=== PATIENT | female | born 1960 | race Caucasian/White ===

== ENCOUNTER 2016-10-10 06:13 | Observation (INO) | payer BC ==
[~2016-10-10] VITALS: Ht 156.2 cm; Wt 83.4 kg
[~2016-10-10 06:13] MED LIST: ACET1CAP18 PO; ATOR1TAB18 PO; IBUP200C PO; LEVO75TA3 PO; NAPR220T95 PO
[2016-10-10] MEDS ORDERED: INSULIN HUMAN REGULAR 1,000 UNITS/10 ML VIAL SQ PRN (06:45)
[2016-10-10] MEDS ORDERED: METOPROLOL TARTRATE 25 MG TAB PO PRN (06:45)
[2016-10-10] MEDS ORDERED: SODIUM CHLORID 0.9% 500 ML IV SCH (06:45)
[2016-10-10] MEDS ORDERED: LACTATED RINGER'S 1000 ML IV SCH (06:45)
[2016-10-10 06:53] VITALS: BP 149/96; PULSE 75; RESP 18; TEMP 98; O2SAT 96
[2016-10-10] MEDS ORDERED: GENTAMICIN SULFATE 80 MG/2 ML VIAL ONE (07:01)
[2016-10-10] MEDS ORDERED: THROMBIN (TOPICAL) 5,000 UNIT VIAL ONE (07:01)
[2016-10-10] MEDS ORDERED: MICROFIBRILLAR COLLAGEN HEMOSTAT 70 X 35 MM BANDAGE ONE (07:01)
[2016-10-10] MEDS ORDERED: GELFOAM SIZE 100 ONE (07:01)
[2016-10-10] MEDS ORDERED: ceFAZolin 2 GM PREMIX 50 ML ONE (07:01)
[2016-10-10] MEDS ORDERED: VANCOMYCIN HCL 1000 MG VIAL ONE (07:02)
[2016-10-10] MEDS ORDERED: ACETAMINOPHEN 1000 MG/100 ML VIAL IV ONE (08:08)
[2016-10-10] MEDS ORDERED: FAMOTIDINE 20 MG/2 ML VIAL ONE (08:09)
[2016-10-10] MEDS ORDERED: MIDAZOLAM HCL 2 MG/2 ML VIAL ONE (08:09)
[2016-10-10] MEDS ORDERED: ARTIFICIAL TEARS OPTH OINT 3.5 APPLIC/3.5 GM TUBO ONE (08:09)
[2016-10-10] MEDS ORDERED: fentaNYL CITRATE 250 MCG/5 ML AMP ONE ×2 (08:10→12:23)
[2016-10-10] MEDS ORDERED: ONDANSETRON HCL 4 MG/2 ML VIAL IV PUSH ONE (12:00)
[2016-10-10] MEDS ORDERED: LACTATED RINGER'S 1000 ML INJ 1,000 ML IV ONE (12:00)
[2016-10-10] MEDS ORDERED: PHENYLEPH/NS 1000 MCG/10 ML SYR IV ONE (12:00)
[2016-10-10] MEDS ORDERED: ePHEDrine/NS 25 MG/5 ML SYR IV ONE (12:00)
[2016-10-10] MEDS ORDERED: PROPOFOL 200 MG/20 ML AMP IV ONE (12:00)
--- NOTE | 2016-10-10 12:06 | RADRPT ---
EXAM DATE/TIME: 10/10/2016 09:17 [place] COMPARISON: No previous studies available for comparison. INDICATIONS : Post-op C3-C4-C5 anterior cervical fusion. MEDICAL HISTORY : None. SURGICAL HISTORY : None. ENCOUNTER: Initial ACUITY: 1 day PAIN SCORE: Non-responsive. LOCATION: neck FINDINGS: There is anterior cervical fusion with a plate anteriorly from C3-C5. The vertebral bodies are normal in alignment on the lateral view. CONCLUSION: 1. Postsurgical changes as above. Martínez Baker MD on October 10, 2016 at 12:05 Board Certified Radiologist. This report was verified electronically.
[2016-10-10] MEDS ORDERED: DO NOT ADM ANY ANTICOAGULANT DRUGS XX PRN (12:13)
[2016-10-10] MEDS ORDERED: ACETAMINOPHEN 325 MG TAB PO PRN ×2 (12:15)
[2016-10-10] MEDS ORDERED: SODIUM CHLORIDE 0.9% FLUSH 5 ML FLUSH IVF PRN (12:15)
[2016-10-10] MEDS ORDERED: ONDANSETRON HCL 4 MG/2 ML VIAL IV PRN (12:15)
[2016-10-10] MEDS ORDERED: ACETAMINOPHEN/HYDROcodone 325 MG/10 MG TAB PO PRN ×2 (12:15)
[2016-10-10] MEDS ORDERED: BISACODYL 10 MG SUPP PR PRN (12:15)
[2016-10-10] MEDS ORDERED: MORPHINE SULFATE 4 MG/ML INJ IV PUSH PRN (12:15)
[2016-10-10] MEDS ORDERED: MENTHOL LOZENGE SUCK-ON PRN (12:15)
--- NOTE | 2016-10-10 12:20 | PD.OP ---
Operative Report Date of Surgery: Oct 10, 2016 Preoperative Diagnosis: Cervical spondylolisthesis with stenosis Postoperative Diagnosis: Cervical spondylolisthesis with stenosis Procedure: C3-4, C4-5 anterior cervical discectomy, interbody arthodhesis using PEEK cage filled with autologous bone graft, Simplicity plate and screws. Anesthesia: general Surgeon: Aakash Elise Dietetic Technician Registered(s): Viola Bowden Operation and Findings: INDICATIONS FOR THE PROCEDURE Ms Lieberman is a 56 year-old female who presented with intractable neck pain and clinical evidence of C4 and C5 upper extremity radiculopathy. She was found to have subluxations with significant spondylosis with stenosis. She has failed maximum nonsurgical management including multiple modalities of conservative treatment as well as pain management interventions by an interventional pain specialist. A surgical decompression and arthrodhesis were indicated. The [id number] details of the procedure, indications, alternatives, risks and potential complications were fully discussed with the patient. The patient fully understood. All The questions were answered. No guarantees were given. The patient voiced requesting the procedure and provided informed consents. The patient was offered the alternative of delaying the procedure and continuing with nonsurgical management. DETAILS OF THE SURGICAL PROCEDURE After the induction of general anesthesia, endotracheal intubation was performed. A Avila catheter, bilateral LILY hose, and sequential compression devices were placed and kept throughout the procedure. Placement of electrodes for neurophysiological monitoring of the somatosensorial evoked potentials. motor evoked potentials, and EMG as well as laryngeal nerve monitoring was achieved. The patient was positioned supine on a Alirio table with the head over a gel doughnut. All pressure points were carefully padded with eggcrate mattress. The eyes were tapped shut after ointment was applied by the anesthesiologist to prevent corneal abrasion. A Sapna hugger was placed over the exposed lower body to maintain control of the core body temperature. The electrophysiological team placed the needles and electrodes in their proper location and baseline SSEP's and motor evoked potentials were registered prior and after positioning and endotracheal intubation. The anterior cervical region was prepped and draped in the usual sterile fashion. A localizing x-ray was performed with a C-arm. The surgical procedure was performed in several steps as follow: SURGICAL APPROACH A skin incision was made along the medial cervical crease with a #10 blade. The dissection was carried out through the platysma exposing the sternocleidomastoid muscle. The cervical spine was approached following the fascial layers of the neck just medial to the anterior border of the sternocleidomastoid and carotid sheath by a combination of sharp and dull dissection. The omohyoid muscle was identified and carefully dissected laterally and the deep cervical fascia was carefully opened. The longus colli muscles were retracted to each side of the midline. A marker was placed at the disc space C3-4 and a cross-table lateral x-ray performed with a C-arm. SURGICAL DECOMPRESSION In order to decompress the anterior surface of the spinal cord it was necessary to preform a microsurgical resection of the disk at C3-4 and C4-5. At this point in the procedure the operating microscope was draped in the usual sterile fashion and brought to the field. The rest of the surgical procedure was performed using microdissection technique with the exception of the closure. Under the operative microscopic, a self-retaining retractor was placed underneath the longus colli muscle. Anterior osteophite spurs werte carefully removed with the Le[place]. The annulus at C3-4 and C4-5 were incised with a #15 blade and microdiscectomy was then carefully carried out using angled curets and pituitary forceps. There were osteophitic/disk complexes mass effect and compression of the dural sac and nerve roots. The posterior longitudinal ligament was then elevated with an angled curet and incised with a 15 bladed knife. A careful resection of the posterior longitudinal ligament was carried out using a thin footplate 2 mm Kerrison. A nerve hook was used to assess the epidural space behing the vertebral bodies C3, C4, and C5 in search for residual disk fragments. The margins of the posterior endplates at C3-4 and C4- 5 were carefully drilled and undercut with a TPS drill under high magnification. The decompression was then carried out laterally, and a bilateral foraminotomy was performed with a 2mm thin foot Kerrison. Then the vertebral bodies above and below the disk space were undercut using a 2 mm thin foot Kerrison. The epidural space was the systematically assessed with a nerve hook in search for disk fragments. An excellent decompression was achieved in both, the dural sac and bilateral exiting nerve roots. The incision was then irrigated with a large amount of antibiotic solution INTERBODY ARTHRODHESIS In order to avoid collapse of the disk space which would result in bilateral foraminal stenosis, and to increase the chances of a successful fusion, it was necessary to place an interbody cage filled with autologous bone. At this point of the procedure, the superior and inferior endplates were then evenly decorticated with a TPS drill. The use of a drill in combination with a curette allowed me to systematically remove the cartilaginous endplates, exposing healthy bone for the interbody arthrodesis. Fourteen millimeters distraction pins were then placed at the vertebral bodies adjacent to the disk space, and gentle distraction was applied. The size of the interbody cage was then assessed using different size spacers, and a rasp was used to ensure no residual cartilage. A PEEK cage of the appropriate size was selected, and the interbody arthrodesis was then preformed by carefully impacting a PEEK cage filled with autologous bone graft to the disc spaces C3-4 and C4-5. An excellent position of the cage was achieved. This was was confirmed anatomically by feeling the space posterior to the implant and distance to the anterior surface of the dural sac. Radiological confirmation of the position was performed with a cross lateral xray performed with the C-arm. INTERNAL INSTRUMENTAL FIXATION Once that the interbody device was in an appropriate position, it was necessary to stabilize the spine with anterior instrumentation. Anterior instrumentation has demonstrated to increase the rate of fusion, acelerate the patient's recovery, and decrease the rate of failed interbody grafts. At this point of the procedure, the distance between the vertebral bodies was carefully measures , and a Simplicity plate was brought to the field and presented in front of the vertebral bodies C3, C4, and C5. Senior Environmental Practice Leader holes were then drilled using the TPS drill, and the plate was then secured to the spine using self-drilling, self- tapping screws. Initially, the inferior right screw was inserted, followed by placement of the contralateral upper screw. The remanding screws were sequentially placed in a contra-lateral fashion. A proper purchase was achieved with all screws and the position of the cage, plate and screws, and alignment of the spine was assessed anatomically by direct visualization, and radiologically by performing a cross lateral xray of the cervical spine with the C-arm. CLOSURE The incision was irrigated with several liters of antibiotic solution. Hemostasis was achieved with a bipolar. The screws were locked to prevent backing out. The incision was then closed in layers. 3-0 Vicryl with interrupted sutures was used to close the platysma and subcutaneous tissue. The skin was closed with 4-0 running subcuticular Vicryl and glue was applied to the skin. The drain was secured with a 3-0 nylon. At the end of the procedure the sponge, needle and instrument counts were all correct. The estimated blood loss was less than 60 cc. No blood transfusion was given. No intraoperative complications occurred. The patient received prophylactic antibiotics. The patient was then extubated and transferred to the recovery room in stable condition. Aakash Elise MD Oct 10, 2016 12:20
[2016-10-10] MEDS ORDERED: *morphine SULFATE 8 MG/ML PERIprocedure ONLY ONE ×3 (12:37→13:14)
[2016-10-10] MEDS ORDERED: HYDR-3583 PO (12:45)
[2016-10-10] MEDS ORDERED: ULTR50TA5 PO (12:49)
[2016-10-10] MEDS: NS + KCL 20 MEQ INJ 1,000 ML IV SCH ×2 (13:00→23:54)
[2016-10-10] MEDS: DEXAMETHASONE SOD PHOS 4 MG/ML VIAL IV SCH ×3 (13:30→23:52)
[2016-10-10] MEDS: ceFAZolin 2 GM PREMIX 50 ML IV SCH ×2 (16:08→23:54)
[2016-10-10] MEDS: traMADol HCL 50 MG TAB PO PRN ×2 (16:10→23:52)
[2016-10-10] MEDS: MORPHINE SULFATE 4 MG/ML INJ IV PUSH PRN (18:28)
[2016-10-10 19:37] VITALS: BP 163/95; PULSE 67; RESP 17; TEMP 96.2; O2SAT 93
[2016-10-10] MEDS: SODIUM CHLORIDE 0.9% FLUSH 5 ML FLUSH IVF SCH (20:14)
[2016-10-10] MEDS: DOCUSATE SODIUM 100 MG CAP PO SCH (20:14)
[2016-10-11] VITALS (9 sets, daily range): BP systolic 131–199; BP diastolic 70–94; PULSE 60–92; RESP 16–18; TEMP 96.1–99; O2SAT 97–99
[2016-10-11] MEDS: MORPHINE SULFATE 4 MG/ML INJ IV PUSH PRN ×2 (01:30→08:21)
[2016-10-11] MEDS: traMADol HCL 50 MG TAB PO PRN ×2 (06:53→13:47)
[2016-10-11] MEDS: DEXAMETHASONE SOD PHOS 4 MG/ML VIAL IV SCH ×3 (06:53→17:41)
[2016-10-11] MEDS: LEVOTHYROXINE SODIUM 75 MCG TAB PO SCH (06:53)
[2016-10-11] MEDS ORDERED: ENALAPRIL MALEATE 5 MG TAB PO PRN (07:30)
[2016-10-11] MEDS: SODIUM CHLORIDE 0.9% FLUSH 5 ML FLUSH IVF SCH ×2 (08:19→21:55)
--- NOTE | 2016-10-11 08:19 | EKG ---
Date Performed: 10/10/2016 Time Performed: 06:57:23 PTAGE: 56 years EKG: Sinus rhythm MARKED LEFT AXIS DEVIATION VOLTAGE CRITERIA FOR LVH ABNORMAL ECG Compared to PREVIOUS TRACING , the left axis deviation is new. PREVIOUS TRACIN02/03/2008 12.55 DOCTOR: Venice Rhodes Interpretating Date/Time 10/11/2016 08:19:05
[2016-10-11] MEDS: ceFAZolin 2 GM PREMIX 50 ML IV SCH (08:20)
[2016-10-11] MEDS: ATORVASTATIN 80 MG TAB PO SCH (08:21)
[2016-10-11] MEDS: DOCUSATE SODIUM 100 MG CAP PO SCH ×2 (08:21→21:55)
[2016-10-11] MEDS: PANTOPRAZOLE SOD 40 MG DELAYED RELEASE TAB PO SCH (08:21)
[2016-10-11] MEDS ORDERED: CLON0.1T PO (09:11)
[2016-10-11] MEDS ORDERED: ENALAPRIL MALEATE 10 MG TAB PO ONE (09:30)
[2016-10-11] MEDS ORDERED: cloNIDine HCL 0.1 MG TAB PO/NG PRN ×2 (11:45→17:45)
[2016-10-11] MEDS: CYCLOBENZAPRINE HCL 10 MG TAB PO PRN (13:47)
--- NOTE | 2016-10-11 14:05 | HHI.NSPN ---
Note Status Status: Progress Note Interval History Interval History Ms. Lieberman is a 56 year old female who underwent C3-4, C4-5 anterior cervical discectomy with arthrodesis on 10/10/16. Her surgery went well without complications. This morning Ms. Lieberman complains of diffuse headaches, her blood pressure as high as 192/86. She denies history of hypertension, and was not on antihypertensives at home, and says normally her bp runs in the 120's/70' s. She reports of stable residual right upper extremity weakness, her left arm pain and weakness however has improved. She was given 10 mg Vasotec earlier this morning, however her last BP remains elevated at 189/90. Labs, Micro, & Vital Signs Results Date Time Temp Pulse Resp B/P Pulse Ox O2 Delivery O2 Flow Rate FiO2 10/11/16 12:00 99.0 60 18 189/80 99 10/11/16 10:50 161/70 10/11/16 09:00 192/86 10/11/16 07:59 97.0 69 18 199/91 98 10/11/16 03:10 96.1 67 16 184/87 97 10/11/16 02:00 64 174/88 10/11/16 01:00 96.5 92 17 199/94 97 10/10/16 19:37 96.2 67 17 163/95 93 10/10/16 18:44 Room Air 10/10/16 16:24 Room Air 10/10/16 14:55 65 16 97 Nasal Cannula 2 10/10/16 14:45 97.8 69 16 135/74 98 Nasal Cannula 2 10/10/16 14:00 68 16 134/72 96 Nasal Cannula 2 10/11/16 07:00 Intake Total 3026 ml Output Total 715 ml Balance 2311 ml Constitutional Vital Signs Date Time Temp Pulse Resp B/P Pulse Ox O2 Delivery O2 Flow Rate FiO2 10/11/16 12:00 99.0 60 18 189/80 99 10/11/16 10:50 161/70 10/11/16 09:00 192/86 10/11/16 07:59 97.0 69 18 199/91 98 10/11/16 03:10 96.1 67 16 184/87 97 10/11/16 02:00 64 174/88 10/11/16 01:00 96.5 92 17 199/94 97 10/10/16 19:37 96.2 67 17 163/95 93 10/10/16 18:44 Room Air 10/10/16 16:24 Room Air 10/10/16 14:55 65 16 97 Nasal Cannula 2 10/10/16 14:45 97.8 69 16 135/74 98 Nasal Cannula 2 10/10/16 14:00 68 16 134/72 96 Nasal Cannula 2 10/11/16 07:00 Intake Total 3026 ml Output Total 715 ml Balance 2311 ml Medications Current Medications Current Medications Medications (Trade) Dose Ordered Sig/Sal Route PRN Reason Start Time Stop Time Status Last Admin Dose Admin Potassium Chloride/Sodium Chloride (NS + KCl 20 Meq Inj) 1,000 ml @ 70 mls/hr [id number] IV 10/10/16 12:06 10/10/16 23:54 IV Flush (NS Flush) 2 ml UNSCH PRN IVF FLUSH AFTER USING IV ACCESS 10/10/16 12:15 IV Flush (NS Flush) 2 ml BID IVF 10/10/16 21:00 10/11/16 08:19 Bisacodyl (Dulcolax Supp) 10 mg DAILY PRN [place] CONSTIPATION 10/10/16 12:15 Docusate Sodium (Colace) 100 mg BID PO 10/10/16 21:00 10/11/16 08:21 Pantoprazole Sodium (Protonix) 40 mg DAILY PO 10/11/16 09:00 10/11/16 08:21 Ondansetron HCl (Zofran Inj) 4 mg Q6H PRN IV NAUSEA OR VOMITING 10/10/16 12:15 10/11/16 04:10 Morphine Sulfate (Morphine Inj) 2 mg Q2H PRN IV PUSH PAIN SCALE 1 TO 6 10/10/16 12:15 Morphine Sulfate (Morphine Inj) 4 mg Q2H PRN IV PUSH PAIN SCALE 7 TO 10 10/10/16 12:15 10/11/16 08:21 Cyclobenzaprine HCl (Flexeril) 10 mg Q8H PRN PO MUSCLE SPASM 10/10/16 13:00 Dexamethasone Sodium Phosphate (Decadron Inj) 4 mg Q6HR IV 10/10/16 13:30 10/11/16 11:51 Acetaminophen (Tylenol) 650 mg Q4H PRN PO TEMPERATURE > 101.5 F 10/10/16 12:15 10/11/16 04:10 Menthol ([place] Joe) 1 lozenge UNSCH PRN SUCK-ON SORE THROAT 10/10/16 12:15 Atorvastatin Calcium (Lipitor) 80 mg DAILY PO 10/11/16 09:00 10/11/16 08:21 Levothyroxine Sodium (Synthroid) 75 mcg DAILY@06 PO 10/11/16 06:00 10/11/16 06:53 Tramadol HCl (Ultram) 50 mg Q6H PRN PO PAIN 1-10 10/10/16 13:45 10/11/16 06:53 Enalapril Maleate (Vasotec) 12 mg Q8H PRN PO HIGH BLOOD PRESSURE 10/11/16 07:30 Hold Clonidine (Catapres) 0.1 mg Q6H PRN PO/NG SYS BP GREATER THAN 170 MMHG 10/11/16 11:45 10/11/16 12:29 Medical Decision Making MDM Remarks 56 y/o female s/p C3-5 ACDF, POD 1 hypertensive urgency, new onset Plan Plan Remarks start clonidine 0.1 prn bp >180 consultation to medicine for assistance in bp management hold dc until bp has been stabilized [place] Oct 11, 2016 14:05
[2016-10-11] MEDS: NS + KCL 20 MEQ INJ 1,000 ML IV SCH (16:42)
[2016-10-11] MEDS ORDERED: LORazepam 1 MG TAB PO PRN (17:00)
[2016-10-11] MEDS ORDERED: ENALAPRILAT 1.25 MG/ML VIAL IV PUSH PRN (17:00)
--- NOTE | 2016-10-11 17:03 | PD.CONS ---
[facility] By Dr. Elise Reason for Consult Hypertension Primary Care Physician Adrián Sheets MD, PhD Diagnoses: History of Present Illness The patient is a 56-year-old female who came into the hospital for an elective C3-4, C4-5 anterior cervical discectomy with arthrodesis on 10/10/16. The patient says she has had chronic neck pain but over the past 2 months it has been getting worse. She has noticed her right arm becoming numb and weak. She says she has been unable to brush her hair, her teeth were cleaned her face with her right arm secondary to the weakness. The patient also developed numbness in her left upper extremity. She said she did not develop much weakness in that left upper extremity. She has been following with her primary care doctor. The patient says she has been going through menopause and her breasts have gone bigger and she believes that might be putting more pressure on her cervical spine causing the worsening pain. She was referred to her neurologist and eventually to a neurosurgeon. The patient was scheduled for surgery and tolerated the procedure well. Following surgery she has had sustained blood pressure readings and medicine is consulted to assist with that. The patient says her pain is currently a 7 out of 10 in severity. She describes it as a throbbing sensation. She also endorses anxiety. She says she has a lot of stress at home being a single mother. She did have nausea and vomiting associated with Lortab use in the past. Nursing was at the bedside. Review of Systems Except as stated in HPI: all other systems reviewed are Neg Past Family Social History Allergies: Coded Allergies: Lortab (Verified Allergy, Severe, Nausea/Vomiting, 10/10/16) pt states makes very ill Past Medical History HLP Hypothyroidism Right ovarian dermoid tumor Left ankle surgery Blakely teeth removal Left eye surgery Active Ordered Medications Current Medications Medications (Trade) Dose Ordered Sig/Sal Route Start Time Stop Time Status Last Admin (NS + KCl 20 Meq Inj) 1,000 ml @ 70 mls/hr [id number] IV 10/10/16 12:06 10/10/16 23:54 (NS Flush) 2 ml UNSCH PRN IVF 10/10/16 12:15 (NS Flush) 2 ml BID IVF 10/10/16 21:00 10/11/16 08:19 (Dulcolax Supp) 10 mg DAILY PRN [place] 10/10/16 12:15 (Colace) 100 mg BID PO 10/10/16 21:00 10/11/16 08:21 (Protonix) 40 mg DAILY PO 10/11/16 09:00 10/11/16 08:21 (Zofran Inj) 4 mg Q6H PRN IV 10/10/16 12:15 10/11/16 04:10 (Morphine Inj) 2 mg Q2H PRN IV PUSH 10/10/16 12:15 (Morphine Inj) 4 mg Q2H PRN IV PUSH 10/10/16 12:15 10/11/16 08:21 (Flexeril) 10 mg Q8H PRN PO 10/10/16 13:00 10/11/16 13:47 (Decadron Inj) 4 mg Q6HR IV 10/10/16 13:30 10/11/16 11:51 (Tylenol) 650 mg Q4H PRN PO 10/10/16 12:15 10/11/16 04:10 ([place] Joe) 1 lozenge UNSCH PRN SUCK-ON 10/10/16 12:15 (Lipitor) 80 mg DAILY PO 10/11/16 09:00 10/11/16 08:21 (Synthroid) 75 mcg DAILY@06 PO 10/11/16 06:00 10/11/16 06:53 (Catapres) 0.1 mg Q6H PRN PO/NG 10/11/16 11:45 10/11/16 12:29 (Roxicodone) 5 mg Q4H PRN PO 10/11/16 14:45 (Roxicodone) 10 mg Q4H PRN PO 10/11/16 14:45 10/11/16 16:43 (Vasotec Inj) 1.25 mg Q6H PRN IV PUSH 10/11/16 17:00 UNV (Ativan) 1 mg Q8H PRN PO 10/11/16 17:00 UNV Family History HTN Colon cancer Breast cancer Oscar's disease CAD Social History The pt does not smoke. She drinks 1-2 glasses of wine daily. No drug use. Physical Exam Vital Signs Vital Signs Date Time Temp Pulse Resp B/P Pulse Ox O2 Delivery O2 Flow Rate FiO2 10/11/16 16:37 97.4 62 18 187/80 97 10/11/16 12:00 99.0 60 18 189/80 99 10/11/16 10:50 161/70 10/11/16 09:00 192/86 10/11/16 07:59 97.0 69 18 199/91 98 10/11/16 03:10 96.1 67 16 184/87 97 10/11/16 02:00 64 174/88 10/11/16 01:00 96.5 92 17 199/94 97 10/10/16 19:37 96.2 67 17 163/95 93 10/10/16 18:44 Room Air Physical Exam GENERAL: This is a well-nourished, well-developed patient, in no apparent distress. SKIN: No rashes, ecchymoses or lesions. Cool and dry. HEAD: Atraumatic. Normocephalic. No temporal or scalp tenderness. EYES: Pupils equal round and reactive. Extraocular motions intact. No scleral icterus. No injection or drainage. ENT: Nose without bleeding, purulent drainage or septal hematoma. Throat without erythema, tonsillar hypertrophy or exudate. Uvula midline. Airway patent. NECK: Trachea midline. No JVD or lymphadenopathy. Supple, nontender, no meningeal signs. In cervical collar. CARDIOVASCULAR: Regular rate and rhythm without murmurs, gallops, or rubs. RESPIRATORY: Clear to auscultation. Breath sounds equal bilaterally. No wheezes , rales, or rhonchi. GASTROINTESTINAL: Abdomen soft, non-tender, nondistended. No hepato-splenomegaly , or palpable masses. No guarding. MUSCULOSKELETAL: Extremities without clubbing, cyanosis, or edema. No joint tenderness, effusion, or edema noted. No calf tenderness. NEUROLOGICAL: Awake and alert. Cranial nerves II through XII intact. Normal speech. Right upper extremity with 3/5 strength. LUE with 4/5 strength. PSYCH: Slightly anxious. Imaging Last Impressions Cervical Spine X-Ray 10/10/16 0000 Signed Impressions: Service Date/Time: Monday, October 10, 2016 09:17 - CONCLUSION: 1. Postsurgical changes as above. Martínez Baker MD Assessment and Plan Assessment and Plan Hypertensive urgency The patient does not have a history of high blood pressure. The patient's blood pressure became elevated following surgery. May be secondary to medications. More likely related to postsurgical pain and anxiety which the patient does endorse. - Continue by mouth clonidine as needed along with IV Vasotec as needed. - Increase pain control with oxycodone. Discontinue tramadol. Continue morphine for breakthrough pain. - Trial of Ativan for anxiety control. - Would hold off on starting long-term anti-hypertensives as her blood pressure elevation may simply be situational. Will reassess. Cervical spondylolisthesis with stenosis The patient is status post C3-4, C4-5 anterior cervical discectomy with arthrodesis on 10/10/16. - wound care and anticoagulation per primary. - physical therapy. - incentive spirometry. - pain control with a bowel regimen. Hypothyroidism On levothyroxine as an outpt. - continue levothyroxine. - check a TSH. PPx: Per primary. Discussed Condition With Pt, nurse. Duy Sweet DO Oct 11, 2016 17:03
[2016-10-11] MEDS ORDERED: POLYETHYLENE GLYCOL 17 GM PKG PO PRN (17:15)
[2016-10-11 17:45] LABS: AUTOMATED NEUTROPHIL # 10.4 TH/MM3 (1.8-7.7); BASOPHIL % 0.2 % (0.0-2.0); EOSINOPHIL % 0.1 % (0.0-4.0); HEMATOCRIT 39.7 % (35.0-46.0); HEMO FLAGS DIFF FINAL; LYMPH % 7.7 % (9.0-44.0); LYMPHOCYTE # 0.9 TH/MM3 (1.0-4.8); MEAN CELL VOLUME 91.9 FL (80.0-100.0); MEAN CORPUSCULAR HEMOGLOBIN 31.1 PG (27.0-34.0); MEAN CORPUSCULAR HGB CONC 33.9 % (32.0-36.0); MONO % 7.6 % (0.0-8.0); NEUT % 84.4 % (16.0-70.0); PLATELET COUNT 221 TH/MM3 (150-450); RED BLOOD COUNT 4.32 MIL/MM3 (4.00-5.30); RED CELL DISTRIBUTION WIDTH 14.2 % (11.6-17.2); WHITE BLOOD COUNT 12.3 TH/MM3 (4.0-11.0)
[2016-10-11 18:13] LABS: ALKALINE PHOSPHATASE 75 U/L (45-117); ALT (GPT) 30 U/L (10-53); ANION GAP 9 MEQ/L (5-15); AST (GOT) 17 U/L (15-37); BICARBONATE 26.4 MEQ/L (21.0-32.0); BLOOD UREA NITROGEN 16 MG/DL (7-18); CHLORIDE 104 MEQ/L (98-107); GLOMERULAR FILTRATION RATE 102 ML/MIN (>89); MAGNESIUM 1.9 MG/DL (1.5-2.5); POTASSIUM 3.8 MEQ/L (3.5-5.1); SODIUM (NA) 139 MEQ/L (136-145); TOTAL BILIRUBIN ADULT 0.4 MG/DL (0.2-1.0)
[2016-10-12] MEDS: DEXAMETHASONE SOD PHOS 4 MG/ML VIAL IV SCH ×3 (00:48→12:22)
[2016-10-12 01:30] VITALS: BP 136/68; PULSE 66; RESP 17; TEMP 96.2; O2SAT 99
[2016-10-12] MEDS: CYCLOBENZAPRINE HCL 10 MG TAB PO PRN (01:39)
[2016-10-12 04:00] VITALS: BP 163/74; PULSE 63; RESP 17; TEMP 96.7; O2SAT 97
[2016-10-12] MEDS: LEVOTHYROXINE SODIUM 75 MCG TAB PO SCH (05:36)
[2016-10-12] MEDS: NS + KCL 20 MEQ INJ 1,000 ML IV SCH (07:00)
[2016-10-12 07:35] VITALS: BP 181/81; PULSE 64; RESP 18; TEMP 96.5; O2SAT 96
[2016-10-12] MEDS: DOCUSATE SODIUM 100 MG CAP PO SCH (08:54)
[2016-10-12] MEDS: SODIUM CHLORIDE 0.9% FLUSH 5 ML FLUSH IVF SCH (08:55)
[2016-10-12] MEDS: PANTOPRAZOLE SOD 40 MG DELAYED RELEASE TAB PO SCH (08:55)
[2016-10-12] MEDS: ATORVASTATIN 80 MG TAB PO SCH (09:00)
[2016-10-12] MEDS ORDERED: LISINOPRIL 10 MG TAB PO SCH (09:00)
[2016-10-12 09:34] VITALS: O2SAT 96
[2016-10-12 12:00] VITALS: BP 116/60; PULSE 79; RESP 18; TEMP 97.2; O2SAT 94
[2016-10-12] MEDS ORDERED: CYCL1TAB29 PO (13:49)
[2016-10-12] MEDS ORDERED: WALKER WHEELS/F1 MIS (13:49)
[2016-10-12] MEDS ORDERED: MAGNESIUM CITRATE SOLN 300 ML BTL PO ONE (14:00)
--- NOTE | 2016-10-12 14:00 | HHI.DCPOC ---
Discharge Care Plan Diagnosis: (1) Status post cervical arthrodesis Goals to Promote Your Health * To prevent worsening of your condition and complications * To maintain your health at the optimal level Directions to Meet Your Goals Take your medications as prescribed Follow your dietary instruction Follow activity as directed Keep your appointments as scheduled Take your immunizations and boosters as scheduled If your symptoms worsen call your PCP, if no PCP go to Urgent Care Center or Emergency Room Smoking is Dangerous to Your Health. Avoid second hand smoke Call the 24-hour hour crisis hotline for domestic abuse at [place] Oct 12, 2016 14:00
--- NOTE | 2016-10-12 14:13 | HHI.NSPN ---
([place]) Note Status Status: Progress Note ([place]) Interval History Interval History Ms. Lieberman is a 56 year old female who underwent C3-4, C4-5 anterior cervical discectomy with arthrodesis on 10/10/16. Her surgery went well without complications. This morning Ms. Lieberman complains of diffuse headaches, her blood pressure as high as 192/86. She denies history of hypertension, and was not on antihypertensives at home, and says normally her bp runs in the 120's/70' s. She reports of stable residual right upper extremity weakness, her left arm pain and weakness however has improved. She was given 10 mg Vasotec earlier this morning, however her last BP remains elevated at 189/90. 10/12: BP 116/60, feeling better and slept well last night, still reports of diffuse headaches, stable right arm weakness, no new focal weakness, vision changes, slurred speech, vomiting. Also ambulating better with walker, says she is ready to go home. ([place]) Labs, Micro, & Vital Signs Results Date Time Temp Pulse Resp B/P Pulse Ox O2 Delivery O2 Flow Rate FiO2 10/12/16 12:00 97.2 79 18 116/60 94 10/12/16 09:34 96 21 10/12/16 07:44 Room Air 10/12/16 07:35 96.5 64 18 181/81 96 10/12/16 04:00 96.7 63 17 163/74 97 10/12/16 01:30 96.2 66 17 136/68 99 10/11/16 20:26 96.6 63 18 131/75 97 10/11/16 16:37 97.4 62 18 187/80 97 10/12/16 07:00 Intake Total 1800 ml Balance 1800 ml Constitutional Vital Signs Date Time Temp Pulse Resp B/P Pulse Ox O2 Delivery O2 Flow Rate FiO2 10/12/16 12:00 97.2 79 18 116/60 94 10/12/16 09:34 96 21 10/12/16 07:44 Room Air 10/12/16 07:35 96.5 64 18 181/81 96 10/12/16 04:00 96.7 63 17 163/74 97 10/12/16 01:30 96.2 66 17 136/68 99 10/11/16 20:26 96.6 63 18 131/75 97 10/11/16 16:37 97.4 62 18 187/80 97 10/12/16 07:00 Intake Total 1800 ml Balance 1800 ml ([place]) Medications Current Medications Current Medications Medications (Trade) Dose Ordered Sig/Sal Route PRN Reason Start Time Stop Time Status Last Admin Dose Admin Potassium Chloride/Sodium Chloride (NS + KCl 20 Meq Inj) 1,000 ml @ 70 mls/hr [id number] IV 10/10/16 12:06 10/10/16 23:54 IV Flush (NS Flush) 2 ml UNSCH PRN IVF FLUSH AFTER USING IV ACCESS 10/10/16 12:15 IV Flush (NS Flush) 2 ml BID IVF 10/10/16 21:00 10/12/16 08:55 Bisacodyl (Dulcolax Supp) 10 mg DAILY PRN ND CONSTIPATION 10/10/16 12:15 Docusate Sodium (Colace) 100 mg BID PO 10/10/16 21:00 10/12/16 08:54 Pantoprazole Sodium (Protonix) 40 mg DAILY PO 10/11/16 09:00 10/12/16 08:55 Ondansetron HCl (Zofran Inj) 4 mg Q6H PRN IV NAUSEA OR VOMITING 10/10/16 12:15 10/11/16 04:10 Morphine Sulfate (Morphine Inj) 2 mg Q2H PRN IV PUSH PAIN SCALE 1 TO 6 10/10/16 12:15 Morphine Sulfate (Morphine Inj) 4 mg Q2H PRN IV PUSH PAIN SCALE 7 TO 10 10/10/16 12:15 10/11/16 08:21 Cyclobenzaprine HCl (Flexeril) 10 mg Q8H PRN PO MUSCLE SPASM 10/10/16 13:00 10/12/16 01:39 Dexamethasone Sodium Phosphate (Decadron Inj) 4 mg Q6HR IV 10/10/16 13:30 10/12/16 12:22 Acetaminophen (Tylenol) 650 mg Q4H PRN PO TEMPERATURE > 101.5 F 10/10/16 12:15 10/11/16 04:10 Menthol ([place]) 1 lozenge UNSCH PRN SUCK-ON SORE THROAT 10/10/16 12:15 10/12/16 00:56 Atorvastatin Calcium (Lipitor) 80 mg DAILY PO 10/11/16 09:00 10/12/16 09:00 Levothyroxine Sodium (Synthroid) 75 mcg DAILY@06 PO 10/11/16 06:00 10/12/16 05:36 Oxycodone HCl (Roxicodone) 5 mg Q4H PRN PO pain 1-5 10/11/16 14:45 10/12/16 12:21 Oxycodone HCl (Roxicodone) 10 mg Q4H PRN PO pain 6-10 10/11/16 14:45 10/12/16 05:47 Enalaprilat (Vasotec Inj) 1.25 mg Q6H PRN IV PUSH SBP> OR = 170, DBP> OR = 100 10/11/16 17:00 10/12/16 08:54 Lorazepam (Ativan) 1 mg Q8H PRN PO anxiety 10/11/16 17:00 10/11/16 17:41 Clonidine (Catapres) 0.2 mg Q6H PRN PO/NG SYS BP GREATER THAN 170 MMHG 10/11/16 17:45 10/12/16 08:55 Polyethylene Glycol (Miralax) 17 gm DAILY PRN PO constipation 10/11/16 17:15 10/12/16 08:55 Lisinopril (Prinivil) 10 mg DAILY PO 10/12/16 09:00 10/12/16 09:23 Sumatriptan Succinate (Imitrex) 25 mg ONCE ONCE PO 10/12/16 15:00 10/12/16 15:01 ([place]) Medical Decision Making MDM Remarks 56 y/o female s/p C3-5 ACDF, POD 2, doing well, ambulating, neuro exam stable hypertensive urgency, new onset, improved ([place]) Plan Plan Remarks one time Imitrex for headaches bp improved, recommend she follow up with PCP in 2-3 days for bp dw pt regarding activity restrictions and wound care dc home today ([place]) Attending Statement The exam, history, and the medical decision-making described in the above note were completed with the assistance of the mid-level provider. I reviewed and agree with the findings presented. I attest that I had a [id number] encounter with the patient on the same day, and personally performed and documented my assessment and findings in the medical record. (Aakash Elise MD) [place] Oct 12, 2016 14:13 Aakash Elise MD Oct 19, 2016 11:15
[2016-10-12] MEDS ORDERED: SUMAtriptan SUCCINATE 25 MG TAB PO ONE (15:00)
[2016-10-18] MEDS ORDERED: GABA300C5 PO (10:03)
--- NOTE | 2016-10-18 16:40 | HHI.DS ---
Discharge Summary Admission Date Oct 10, 2016 at 12:07 Discharge Date: Oct 12, 2016 Admitting Diagnosis s/p cervical fusion (1) Status post cervical arthrodesis ICD Code: Z98.1 (2) FH: hypertension ICD Code: Z82.49 Brief History Ms Lieberman is a 56 year-old female who presented with intractable neck pain and clinical evidence of C4 and C5 upper extremity radiculopathy. She was found to have subluxations with significant spondylosis with stenosis. She has failed maximum nonsurgical management including multiple modalities of conservative treatment as well as pain management interventions by an interventional pain specialist. A surgical decompression and arthrodhesis were indicated. Imaging Last Impressions Cervical Spine X-Ray 10/10/16 0000 Signed Impressions: Service Date/Time: Monday, October 10, 2016 09:17 - CONCLUSION: 1. Postsurgical changes as above. Martínez Baker MD Hospital Course Ms. Lieberman is a 56 y/o female who underwent a C3-4, C4-5 anterior cervical discectomy, interbody arthodhesis using PEEK cage filled with autologous bone graft, Simplicity plate and screws on Oct 10, 2016. Her surgery went well without complications. Following her surgery she developed new onset elevated pressure. She was started on clonidine as needed for blood pressure management. A consultation to medical physician was obtained. Her blood pressure improved, the patient remained clinically stable. She was discharged home in stable condition with a recommendation to follow up with her primary care physician. Wound care and activity restrictions were also discussed Pt Condition on Discharge: Stable Discharge Disposition: Discharge Home Discharge Instructions DIET: Follow Instructions for: Heart Healthy Diet ACTIVITIES You can perform: Weight Bearing As Mary ADDITIONAL Activity Instructio: Avoid strenuous activities, heavy lifting, overhead activities, repetitive bending, twisting, pushing, pulling or any activities which might result in stress over the spine. Avoid situtation that will put at risk for falls. Use assistive device as needed for walking. Wear cervical collar at all times, may remove only with meals. No driving. Follow up Referrals: PCP Follow-up - 2-3 Days New Medications: Clonidine (Clonidine) 0.1 Mg Tab 0.1 MG PO BID PRN SBP>180, DBP>100, HR>65 #60 Ref 0 TAB Cyclobenzaprine (Flexeril) 10 Mg Tab 5 MG PO TID PRN SPASM #90 Ref 0 TAB Tramadol (Ultram) 50 Mg Tab 50 MG PO Q8H PRN PAIN #90 Ref 0 TAB Walker with Front Wheels (Walker with Front Wheels) 1 Mis Mis 1 EA .ROUTE DIRECTED #1 Ref 0 EA Continued Medications: Acetaminophen (Tylenol) 325 Mg Cap 325 MG PO Q6H PRN PAIN SCALE 1 TO 2 Ref 0 CAP Atorvastatin (Atorvastatin) 80 Mg Tab 80 MG PO DAILY Cholesterol Management #30 Ref 0 TAB Levothyroxine (Levothyroxine) 75 Mcg Tab 75 MCG PO DAILY Thyroid #30 Ref 0 TAB [place] Oct 18, 2016 16:40
[2016-12-15] MEDS ORDERED: GABA300C5 PO ×2 (17:02→17:03)
== END 2016-10-12 18:25 | disposition home or self-care (01) ==
LOC: HSDC 06:13 → HSDI 12:07 → N06A 15:13
PROVIDERS: ADMIT Neurological Surgery; ATTEND Neurological Surgery
DX: M43.12 Spondylolisthesis, cervical region (principal); M48.02 Spinal stenosis, cervical region; M54.12 Radiculopathy, cervical region; I10 Essential (primary) hypertension; R94.31 Abnormal electrocardiogram [ECG] [EKG]
CPT/HCPCS: 00600; 20936; 22551; 22552; 22845; 22854; 72020; 76000; 80053; 83735; 84100; 84443; 85025; 93005; 94150; 97110; 97116; 97162; C1713; G0378; G8987; G8988; J0131; J0690; J1100; J1580; J2250; J2270; J2370; J2405; J3010; J3370; J3480; J7120; L0150; L0172